=== PATIENT | female | born 1965 | race Caucasian/White ===

== ENCOUNTER 2016-07-06 17:28 | Emergency (ER) | payer BC, OTHER ==
[~2016-07-06] VITALS: Ht 152.4 cm; Wt 65.0 kg
[~2016-07-06 17:28] MED LIST: ALPR-138 PO; CITA-48 PO; IBUP800T23 PO; MONT10TA2 PO
[2016-07-06 17:34] VITALS: BP 135/66; PULSE 64; RESP 16; TEMP 97.6; O2SAT 96
--- NOTE | 2016-07-06 17:58 | PD ---
Physical Exam Time Seen by Provider: 17:56 Narrative PT WITH HISTORY OF MIGRAINE HEADACHES PRESENTS TO THE ED FOR EVALUATION OF HEADACHE ACUTE ONSET AFTER BM TWO TIMES TODAY AND ONCE TWO DAYS AGO. HEADACHE IS STILL THERE AND THROBBING. MILD NAUSEA NO VOMITING. SENSATION OF LIGHTHEADEDNESS. NO OTHER FOCAL DEFICITS . Data Data Last Documented VS Vital Signs Date Time Temp Pulse Resp B/P Pulse Ox O2 Delivery O2 Flow Rate FiO2 07/06/16 21:07 80 16 98 Room Air 07/06/16 17:34 97.6 135/66 Orders Complete Blood Count With Diff (07/06/16 17:58) Basic Metabolic Panel (Bmp) (07/06/16 17:58) Coag Profile (07/06/16 17:58) Ct Brain W/O Iv Contrast(Rout) (07/06/16 ) Iv Access Insert/Monitor (07/06/16 20:58) Prochlorperazine Inj (Compazine Inj) (07/06/16 21:00) Diphenhydramine Inj (Benadryl Inj) (07/06/16 21:00) Sodium Chloride 0.9% Flush (Ns Flush) (07/06/16 21:00) Labs Laboratory Tests Test 07/06/16 18:50 White Blood Count 10.5 TH/MM3 Red Blood Count 4.42 MIL/MM3 Hemoglobin 13.1 GM/DL Hematocrit 37.3 % Mean Corpuscular Volume 84.3 FL Mean Corpuscular Hemoglobin 29.7 PG Mean Corpuscular Hemoglobin 35.2 % Concent Red Cell Distribution Width 12.4 % Platelet Count 250 TH/MM3 Mean Platelet Volume 8.7 FL Neutrophils (%) (Auto) 50.5 % Lymphocytes (%) (Auto) 41.8 % Monocytes (%) (Auto) 5.5 % Eosinophils (%) (Auto) 1.7 % Basophils (%) (Auto) 0.5 % Neutrophils # (Auto) 5.3 TH/MM3 Lymphocytes # (Auto) 4.4 TH/MM3 Monocytes # (Auto) 0.6 TH/MM3 Eosinophils # (Auto) 0.2 TH/MM3 Basophils # (Auto) 0.1 TH/MM3 CBC Comment DIFF FINAL Differential Comment Prothrombin Time 10.8 SEC Prothromb Time International 1.0 RATIO Ratio Activated Partial 28.3 SEC Thromboplast Time Sodium Level 139 MEQ/L Potassium Level 3.9 MEQ/L Chloride Level 105 MEQ/L Carbon Dioxide Level 25.9 MEQ/L Anion Gap 8 MEQ/L Blood Urea Nitrogen 12 MG/DL Creatinine 0.62 MG/DL Estimat Glomerular Filtration 101 ML/MIN Rate Random Glucose 87 MG/DL Calcium Level 8.9 MG/DL [facility] Medical Record Reviewed: Yes Supervised Visit with ASRA: No Narrative Course PT APPEARS WITHOUT DISTRESS. AMBULATORY WITH NON ANTALGIC GAIT. WORK UP INITIATED IN TRIAGE. Scripts Djafniylhj-Txcgsybovopdu-Ddhqxdxa (Fioricet)50-300-40 Mg Cap1-2 Cap PO Q6H PRN ( HEADACHE) #12 CAP Ref 0 Prov:Bee Brannon MD 07/06/16 Condition: Stable Isaura Ceja Jul 06, 2016 17:58
--- NOTE | 2016-07-06 18:21 | RADRPT ---
EXAM DATE/TIME: 07/06/2016 18:09 [facility] COMPARISON: No previous studies available for comparison. INDICATIONS : Acute onset headache today. RADIATION DOSE: 34.04 CTDIvol (mGy) MEDICAL HISTORY : Migraines. SURGICAL HISTORY : None. ENCOUNTER: Initial ACUITY: 1 day PAIN SCALE: 5/10 LOCATION: cranial TECHNIQUE: Multiple contiguous axial images were obtained of the head. Using automated exposure control and adj ustment of the mA and/or kV according to patient size, radiation dose was kept as low as reasonably a chievable to obtain optimal diagnostic quality images. FINDINGS: CEREBRUM: The ventricles are normal for age. No evidence of midline shift, mass lesion, hemorrhage or acute in farction. No extra-axial fluid collections are seen. POSTERIOR FOSSA: The cerebellum and brainstem are intact. The 4th ventricle is midline. The cerebellopontine angle i s unremarkable. EXTRACRANIAL: The visualized portion of the orbits is intact. SKULL: The calvaria is intact. No evidence of skull fracture. CONCLUSION: Normal examination. Gerber Soliz MD on July 06, 2016 at 18:19 Board Certified Radiologist. This report was verified electronically.
[2016-07-06 19:34] LABS: AUTOMATED NEUTROPHIL # 5.3 TH/MM3 (1.8-7.7); BASOPHIL # 0.1 TH/MM3 (0-0.2); BASOPHIL % 0.5 % (0.0-2.0); EOSINOPHIL # 0.2 TH/MM3 (0-0.4); EOSINOPHIL % 1.7 % (0.0-4.0); HEMATOCRIT 37.3 % (35.0-46.0); HEMO FLAGS DIFF FINAL; LYMPH % 41.8 % (9.0-44.0); LYMPHOCYTE # 4.4 TH/MM3 (1.0-4.8); MEAN CELL VOLUME 84.3 FL (80.0-100.0); MEAN CORPUSCULAR HEMOGLOBIN 29.7 PG (27.0-34.0); MEAN CORPUSCULAR HGB CONC 35.2 % (32.0-36.0); MONO % 5.5 % (0.0-8.0); NEUT % 50.5 % (16.0-70.0); PLATELET COUNT 250 TH/MM3 (150-450); RED BLOOD COUNT 4.42 MIL/MM3 (4.00-5.30); RED CELL DISTRIBUTION WIDTH 12.4 % (11.6-17.2); WHITE BLOOD COUNT 10.5 TH/MM3 (4.0-11.0)
[2016-07-06 19:51] LABS: BICARBONATE 25.9 MEQ/L (21.0-32.0); POTASSIUM 3.9 MEQ/L (3.5-5.1)
[2016-07-06 19:58] LABS: APTT (PATIENT) 28.3 SEC (24.3-30.1); PROTHROMBIN TIME - PATIENT 10.8 SEC (9.8-11.6)
[2016-07-06] MEDS ORDERED: PROCHLORPERAZINE INJ 10 MG/2 ML VIAL IVP ONE (21:00)
[2016-07-06] MEDS ORDERED: SODIUM CHLORIDE 0.9% FLUSH 5 ML FLUSH IVF PRN (21:00)
[2016-07-06] MEDS ORDERED: diphenhydrAMINE HCL 50 MG/ML VIAL IVP ONE (21:00)
[2016-07-06] MEDS ORDERED: BUTA1CAP PO (21:10)
--- NOTE | 2016-07-06 21:11 | PD ---
HPI . Headache Chief Complaint: Headache Time Seen by Provider: 20:54 Travel History International Travel<30 days: No Contact w/Intl Traveler<30days: No Traveled to known affect area: No History of Present Illness HPI Patient presents with a headache. She states that it started a couple days ago when she was straining to have a bowel movement. It got better. Then she strained again today having a bowel movement. The headache today has persisted. She states that she has taken Tylenol Sinus without relief. She describes a throbbing, global headache associated with dizziness. No blurred vision. History Past Medical History : 3 Para: 2 Social History Alcohol Use: Yes (SOCIALLY, WINE AND BEER) Tobacco Use: No Allergies-Medications (Allergen,Severity, Reaction): Coded Allergies: Biaxin (Verified Allergy, Severe, HIVES, 02/09/16) Penicillin (Verified Allergy, Severe, TOLD CHILD, 02/09/16) Percocet (Verified Allergy, Severe, ITCHY, 02/09/16) Levaquin (Verified Allergy, Unknown, 07/06/16) Reglan (Verified Adverse Reaction, Severe, "PANIC ATTACKS", 02/09/16) Reported Meds & Prescriptions Reported Meds & Active Scripts Active Fioricet (Xkopnudftp-Gncqaaaqmwejr-Ofubmmii) 50-300-40 Mg Cap 1-2 Cap PO Q6H PRN Ibuprofen 800 Mg Tab 800 Mg PO TID PRN Reported Singulair (Montelukast Sodium) 10 Mg Tab 10 Mg PO HS Citalopram Hydrobromide 40 Mg Tab 40 Mg PO DAILY Xanax (Alprazolam) 0.25 Mg Tab 0.5 Mg PO TID Review of Systems Except as stated in HPI: all other systems reviewed are Neg General / Constitutional: No: Fever, Chills Eyes: No: Blurred Vision HENT: Positive: Headaches Gastrointestinal: Positive: Constipation Neurologic: Positive: Dizziness Physical Exam Narrative GENERAL: This patient is awake and alert and in no distress. SKIN: Warm and dry. HEAD: Atraumatic. Normocephalic. She has some mild scalp tenderness. EYES: Pupils equal and round. ENT: No nasal bleeding or discharge. Mucous membranes pink and moist. NECK: Trachea midline. Neck is supple with full range of motion. CARDIOVASCULAR: Regular rate and rhythm. RESPIRATORY: No accessory muscle use. MUSCULOSKELETAL: No obvious deformities. No edema. NEUROLOGICAL: Awake and alert. No obvious cranial nerve deficits. Motor grossly within normal limits. Normal speech. PSYCHIATRIC: Appropriate mood and affect; insight and judgment normal. Data Data Last Documented VS Vital Signs Date Time Temp Pulse Resp B/P Pulse Ox O2 Delivery O2 Flow Rate FiO2 07/06/16 21:07 80 16 98 Room Air 07/06/16 17:34 97.6 135/66 Orders Complete Blood Count With Diff (07/06/16 17:58) Basic Metabolic Panel (Bmp) (07/06/16 17:58) Coag Profile (07/06/16 17:58) Ct Brain W/O Iv Contrast(Rout) (07/06/16 ) Iv Access Insert/Monitor (07/06/16 20:58) Prochlorperazine Inj (Compazine Inj) (07/06/16 21:00) Diphenhydramine Inj (Benadryl Inj) (07/06/16 21:00) Sodium Chloride 0.9% Flush (Ns Flush) (07/06/16 21:00) Labs Laboratory Tests Test 07/06/16 18:50 White Blood Count 10.5 TH/MM3 Red Blood Count 4.42 MIL/MM3 Hemoglobin 13.1 GM/DL Hematocrit 37.3 % Mean Corpuscular Volume 84.3 FL Mean Corpuscular Hemoglobin 29.7 PG Mean Corpuscular Hemoglobin 35.2 % Concent Red Cell Distribution Width 12.4 % Platelet Count 250 TH/MM3 Mean Platelet Volume 8.7 FL Neutrophils (%) (Auto) 50.5 % Lymphocytes (%) (Auto) 41.8 % Monocytes (%) (Auto) 5.5 % Eosinophils (%) (Auto) 1.7 % Basophils (%) (Auto) 0.5 % Neutrophils # (Auto) 5.3 TH/MM3 Lymphocytes # (Auto) 4.4 TH/MM3 Monocytes # (Auto) 0.6 TH/MM3 Eosinophils # (Auto) 0.2 TH/MM3 Basophils # (Auto) 0.1 TH/MM3 CBC Comment DIFF FINAL Differential Comment Prothrombin Time 10.8 SEC Prothromb Time International 1.0 RATIO Ratio Activated Partial 28.3 SEC Thromboplast Time Sodium Level 139 MEQ/L Potassium Level 3.9 MEQ/L Chloride Level 105 MEQ/L Carbon Dioxide Level 25.9 MEQ/L Anion Gap 8 MEQ/L Blood Urea Nitrogen 12 MG/DL Creatinine 0.62 MG/DL Estimat Glomerular Filtration 101 ML/MIN Rate Random Glucose 87 MG/DL Calcium Level 8.9 MG/DL [facility] Medical Decision Making Medical Screen Exam Complete: Yes Emergency Medical Condition: Yes Differential Diagnosis Differential diagnosis of headache includes but is not limited to migraine, muscle contraction headache, brain tumor, brain bleed Narrative Course Patient was initially seen in triage by one of the PAs. She has had a negative CT of her head. Her CBC is normal. Her electrolytes are normal. I will treat her headache and then discharge her to home. The patient declines IV medications. She states she just was to go home and rest. I have written her prescription for Fioricet. Diagnosis Primary Impression: Headache Qualified Code: R51 - Acute nonintractable headache, unspecified headache type Med/Other Pt SpecificInfo: Prescription(s) given Scripts Lbdfscebpt-Qzrfyjetczqqi-Lwziratm (Fioricet)50-300-40 Mg Cap1-2 Cap PO Q6H PRN ( HEADACHE) #12 CAP Ref 0 Prov:Bee Brannon MD 07/06/16 Disposition: DISCHARGE HOME Condition: Stable Bee Brannon MD Jul 06, 2016 21:11
== END 2016-07-06 21:21 | disposition home or self-care (01) ==
LOC: NEPC 17:28
DX: R51 Headache (principal)
CPT/HCPCS: 70450; 80048; 85025; 85610; 85730

== ENCOUNTER 2016-11-10 16:49 | Emergency (ER) | payer BC ==
[~2016-11-10] VITALS: Ht 154.9 cm; Wt 67.0 kg
[~2016-11-10 16:49] MED LIST changes: -ALPR-138 PO; +BUTA1CAP PO; -CITA-48 PO; -IBUP800T23 PO; -MONT10TA2 PO
[2016-11-10 16:54] VITALS: BP 122/71; PULSE 72; RESP 16; TEMP 97.7; O2SAT 98
[2016-11-10] MEDS ORDERED: SODIUM CHLOR 0.9% 1000 ML INJ 1,000 ML IV SCH (17:22)
[2016-11-10 17:23] LABS: BLOOD, URINE NEG (NEG); GLUCOSE,URINE NEG (NEG); KETONE, URINE NEG (NEG); NITRITE,URINE NEG (NEG); PH, URINE 6.5 (5.0-8.5)
--- NOTE | 2016-11-10 17:26 | PD ---
HPI Chief Complaint: Complaint Time Seen by Provider: 17:22 Travel History International Travel<30 days: No Contact w/Intl Traveler<30days: No Traveled to known affect area: No History of Present Illness HPI 51-year-old female with history of kidney stones, presents to the ER today with several days' history of burning on urination and today woke up with a left sided abdomen and left flank pain that she currently measures at a 9 out of 10. She has been nauseous but denies any fevers, vomiting, diarrhea, or any other symptoms. She does not know exacerbating alleviating factors. Modifying Factors: None Associated Signs & Symptoms: Left flank pain, urinary symptoms Risk Factors: Kidney stone history PFSH Past Medical History Anxiety: Yes Depression: Yes Diminished Hearing: No GERD: Yes Kidney Stones: Yes Influenza Vaccination: No ?: Not Menopausal: Yes : 3 Para: 2 Miscarriage: 1 Tubal Ligation: Yes Past Surgical History Abdominal Surgery: Yes (EXP LAP) Cholecystectomy: Yes Gynecologic Surgery: Yes (CERVICAL CONIZATION; DX LAPROSCOPIES X 2) Social History Alcohol Use: Yes (rarely) Tobacco Use: No Substance Use: No Allergies-Medications (Allergen,Severity, Reaction): Coded Allergies: Biaxin (Verified Allergy, Severe, HIVES, 11/10/16) Penicillin (Verified Allergy, Severe, TOLD CHILD, 11/10/16) Percocet (Verified Allergy, Severe, ITCHY, 11/10/16) Levaquin (Verified Allergy, Unknown, 11/10/16) Reglan (Verified Adverse Reaction, Severe, "PANIC ATTACKS", 11/10/16) Reported Meds & Prescriptions Reported Meds & Active Scripts Active Fioricet (Ezzanjpeth-Fdqdwwlsowvsz-Qfshdegf) 50-300-40 Mg Cap 1-2 Cap PO Q6H PRN Review of Systems Except as stated in HPI: all other systems reviewed are Neg Physical Exam Narrative GENERAL: Well-developed middle age white female patient currently in mild distress. Awake and oriented 3. SKIN: Focused skin assessment warm/dry. HEAD: Atraumatic. Normocephalic. EYES: Pupils equal and round. No scleral icterus. No injection or drainage. ENT: No nasal bleeding or discharge. Mucous membranes pink and moist. NECK: Trachea midline. No JVD. CARDIOVASCULAR: Regular rate and rhythm. No murmur appreciated. RESPIRATORY: No accessory muscle use. Clear to auscultation. Breath sounds equal bilaterally. GASTROINTESTINAL: Abdomen soft, suprapubic tenderness without guarding or rebound, nondistended. Hepatic and splenic margins not palpable. MUSCULOSKELETAL: No obvious deformities. No clubbing. No cyanosis. No edema. BACK: Left CVA tenderness. No rash. No point tenderness on palpation of the spine. NEUROLOGICAL: Awake and alert. No obvious cranial nerve deficits. Motor grossly within normal limits. Normal speech. PSYCHIATRIC: Appropriate mood and affect; insight and judgment normal. Data Data Last Documented VS Vital Signs Date Time Temp Pulse Resp B/P Pulse Ox O2 Delivery O2 Flow Rate FiO2 11/10/16 16:54 97.7 72 16 122/71 98 Orders Urinalysis - C+S If Indicated (11/10/16 16:56) Complete Blood Count With Diff (11/10/16 17:22) Comprehensive Metabolic Panel (11/10/16 17:22) Lipase (11/10/16 17:22) Ct Abd/Pel W/O Iv Contrast (11/10/16 17:22) Iv Access Insert/Monitor (11/10/16 17:22) Ecg Monitoring (11/10/16 17:22) Oximetry (11/10/16 17:22) Ondansetron Inj (Zofran Inj) (11/10/16 17:30) Sodium Chlor 0.9% 1000 Ml Inj (Ns 1000 M (11/10/16 17:22) Sodium Chloride 0.9% Flush (Ns Flush) (11/10/16 17:30) Ketorolac Inj (Toradol Inj) (11/10/16 17:30) Labs Laboratory Tests Test 11/10/16 11/10/16 17:15 17:50 Urine Color YELLOW Urine Turbidity CLEAR Urine pH 6.5 Urine Specific [place] 1.005 Urine Protein NEG mg/dL Urine Glucose (UA) NEG mg/dL Urine Ketones NEG mg/dL Urine Occult Blood NEG Urine Nitrite NEG Urine Bilirubin NEG Urine Leukocyte Esterase NEG Urine Squamous Epithelial 0-5 /hpf Cells Microscopic Urinalysis Comment CULT NOT INDICATED White Blood Count 11.8 TH/MM3 Red Blood Count 4.63 MIL/MM3 Hemoglobin 13.4 GM/DL Hematocrit 39.1 % Mean Corpuscular Volume 84.4 FL Mean Corpuscular Hemoglobin 28.9 PG Mean Corpuscular Hemoglobin 34.2 % Concent Red Cell Distribution Width 11.4 % Platelet Count 252 TH/MM3 Mean Platelet Volume 8.9 FL Neutrophils (%) (Auto) 50.1 % Lymphocytes (%) (Auto) 40.0 % Monocytes (%) (Auto) 5.0 % Eosinophils (%) (Auto) 1.2 % Basophils (%) (Auto) 3.7 % Neutrophils # (Auto) 6.0 TH/MM3 Lymphocytes # (Auto) 4.7 TH/MM3 Monocytes # (Auto) 0.6 TH/MM3 Eosinophils # (Auto) 0.1 TH/MM3 Basophils # (Auto) 0.4 TH/MM3 CBC Comment DIFF FINAL Differential Comment Sodium Level 142 MEQ/L Potassium Level 4.1 MEQ/L Chloride Level 107 MEQ/L Carbon Dioxide Level 26.1 MEQ/L Anion Gap 9 MEQ/L Blood Urea Nitrogen 10 MG/DL Creatinine 0.62 MG/DL Estimat Glomerular Filtration 101 ML/MIN Rate Random Glucose 94 MG/DL Calcium Level 9.5 MG/DL Total Bilirubin 0.3 MG/DL Aspartate Amino Transf 15 U/L (AST/SGOT) Alanine Aminotransferase 15 U/L (ALT/SGPT) Alkaline Phosphatase 68 U/L Total Protein 7.8 GM/DL Albumin 4.1 GM/DL Lipase 182 U/L MDM Medical Decision Making Medical Screen Exam Complete: Yes Emergency Medical Condition: Yes Medical Record Reviewed: Yes Interpretation(s) Laboratory Tests Test 11/10/16 17:50 White Blood Count 11.8 TH/MM3 (4.0-11.0) Red Cell Distribution Width 11.4 % (11.6-17.2) Basophils (%) (Auto) 3.7 % (0.0-2.0) Basophils # (Auto) 0.4 TH/MM3 (0-0.2) Last 24 hours Impressions Abdomen/Pelvis CT 11/10/16 1722 Signed Impressions: Service Date/Time: October 18:22 - CONCLUSION: No acute abnormality. There are no renal or ureteral stones or evidence of obstructive uropathy. Lior Aguirre MD Differential Diagnosis Left flank pains, urinary symptomsUTI/pyelonephritis versus kidney stones versus muscular Narrative Course Pelvic exam is deferred because patient states she does not want one done at this time. She denies any unusual vaginal discharge. UA did not show any signs of UTI. CAT scan is negative for any signs of acute intra-abdominal processes. Lab work is fairly unremarkable. At this point, my plan would be to release the patient was symptomatic relief for discomfort and follow-up with primary care physician. Return for worsening in symptoms as needed. The plan has been discussed with her and she states understanding. Diagnosis Primary Impression: Left flank pain Med/Other Pt SpecificInfo: Prescription(s) given Scripts Ibuprofen (Motrin Ib)200 Mg Jarxmo114 Mg PO QID PRN (PAIN SCALE 1 TO 10) #20 Prov:Francesca Tejada MD 11/10/16 Disposition: DISCHARGE HOME Condition: Stable Francesca Tejada MD November 10, 2016 17:26
[2016-11-10 17:29] LABS: URINE COLOR YELLOW (YELLW/STRAW)
[2016-11-10 17:30] LABS: COMMENT (UR) CULT NOT INDICATED; CULTURE IF INDICATED CULT NOT INDICATED; SQUAMOUS EPITHELIAL CELL URINE 0-5 /hpf (0-5)
[2016-11-10] MEDS ORDERED: KETOROLAC TROMETHAMINE 30 MG/ML (IVP) VIAL IVP ONE (17:30)
[2016-11-10] MEDS ORDERED: SODIUM CHLORIDE 0.9% FLUSH 10 ML FLUSH IV FLUSH PRN (17:30)
[2016-11-10] MEDS ORDERED: ONDANSETRON HCL 4 MG/2 ML VIAL IVP ONE (17:30)
[2016-11-10 18:05] LABS: CHLORIDE 107 MEQ/L (98-107); POTASSIUM 4.1 MEQ/L (3.5-5.1); SODIUM (NA) 142 MEQ/L (136-145)
[2016-11-10 18:08] LABS: ANION GAP 9 MEQ/L (5-15); BICARBONATE 26.1 MEQ/L (21.0-32.0)
[2016-11-10 18:09] LABS: BLOOD UREA NITROGEN 10 MG/DL (7-18)
[2016-11-10 18:11] LABS: ALT (GPT) 15 U/L (10-53); AST (GOT) 15 U/L (15-37); GLOMERULAR FILTRATION RATE 101 ML/MIN (>89)
[2016-11-10 18:13] LABS: TOTAL BILIRUBIN ADULT 0.3 MG/DL (0.2-1.0)
[2016-11-10 18:14] LABS: ALKALINE PHOSPHATASE 68 U/L (45-117)
[2016-11-10 18:18] LABS: BASOPHIL # 0.4 TH/MM3 (0-0.2); BASOPHIL % 3.7 % (0.0-2.0); EOSINOPHIL # 0.1 TH/MM3 (0-0.4); EOSINOPHIL % 1.2 % (0.0-4.0); HEMATOCRIT 39.1 % (35.0-46.0); HEMO FLAGS DIFF FINAL; LYMPHOCYTE # 4.7 TH/MM3 (1.0-4.8); MEAN CELL VOLUME 84.4 FL (80.0-100.0); MEAN CORPUSCULAR HEMOGLOBIN 28.9 PG (27.0-34.0); MEAN CORPUSCULAR HGB CONC 34.2 % (32.0-36.0); NEUT % 50.1 % (16.0-70.0); PLATELET COUNT 252 TH/MM3 (150-450); RED BLOOD COUNT 4.63 MIL/MM3 (4.00-5.30); RED CELL DISTRIBUTION WIDTH 11.4 % (11.6-17.2); WHITE BLOOD COUNT 11.8 TH/MM3 (4.0-11.0)
--- NOTE | 2016-11-10 18:45 | RADHPO ---
EXAM DATE/TIME: 11/10/2016 18:22 [facility] COMPARISON: 05/01/2012 INDICATIONS : Left flank pain, nausea. ORAL CONTRAST: No oral contrast ingested. RADIATION DOSE: 11.45 CTDIvol (mGy) MEDICAL HISTORY : Renal calculi. Gastroesophageal reflux disease. SURGICAL HISTORY : Cholecystectomy. Tubal ligation. ENCOUNTER: Initial ACUITY: 1 day PAIN SCALE: 7/10 LOCATION: Left flank TECHNIQUE: Volumetric scanning of the abdomen and pelvis was performed. Using automated exposure control and ad justment of the mA and/or kV according to patient size, radiation dose was kept as low as reasonably achievable to obtain optimal diagnostic quality images. FINDINGS: LOWER LUNGS: The visualized lower lungs are clear. LIVER: Scattered hypodensities unchanged. SPLEEN: Normal size without lesion. PANCREAS: Within normal limits. KIDNEYS: Normal in size and shape. There is no mass, stone, or hydronephrosis. ADRENAL GLANDS: Within normal limits. VASCULAR: There is no aortic aneurysm. BOWEL/MESENTERY: The stomach, small bowel, and colon demonstrate no acute abnormality. There is no free intraperitone al air or fluid. ABDOMINAL WALL: Within normal limits. RETROPERITONEUM: There is no lymphadenopathy. BLADDER: No wall thickening or mass. REPRODUCTIVE: Within normal limits. INGUINAL: There is no lymphadenopathy or hernia. MUSCULOSKELETAL: Within normal limits for patient age. CONCLUSION: No acute abnormality. There are no renal or ureteral stones or evidence of obstructive uropathy. Lior Aguirre MD on November 10, 2016 at 18:42 Board Certified Radiologist. This report was verified electronically.
[2016-11-10] MEDS ORDERED: IBUP-1129 PO (18:54)
== END 2016-11-10 19:23 | disposition home or self-care (01) ==
LOC: PHED 16:49
DX: R10.9 Unspecified abdominal pain (principal); F41.9 Anxiety disorder, unspecified; F32.9 Major depressive disorder, single episode, unspecified; K21.9 Gastro-esophageal reflux disease without esophagitis; Z88.0 Allergy status to penicillin; Z88.5 Allergy status to narcotic agent; Z88.8 Allergy status to other drugs, medicaments and biological substances
CPT/HCPCS: 74176; 80053; 81001; 83690; 85025; 96361; 96374; 96375; 99285; J1885; J2405; J7030

== ENCOUNTER 2016-12-14 17:54 | Emergency (ER) | payer OTHER, BC ==
[~2016-12-14] VITALS: Ht 154.9 cm; Wt 65.0 kg
[~2016-12-14 17:54] MED LIST changes: +IBUP-1129 PO
[2016-12-14 18:00] VITALS: BP 138/65; PULSE 83; RESP 16; O2SAT 97
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
[2016-12-14] MEDS ORDERED: CITA40TA4 PO (18:22)
[2016-12-14] MEDS ORDERED: ALPR.5 PO (18:22)
[2016-12-14] MEDS ORDERED: NEXI40CA PO (18:22)
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
[2016-12-14 20:13] VITALS: BP 116/71; PULSE 68; RESP 16; O2SAT 99
== END 2016-12-14 20:16 | disposition home or self-care (01) ==
LOC: NEPD 17:54
DX: S16.1XXA Strain of muscle, fascia and tendon at neck level, initial encounter (principal); T14.8 Other injury of unspecified body region; F41.9 Anxiety disorder, unspecified; F32.9 Major depressive disorder, single episode, unspecified; K21.9 Gastro-esophageal reflux disease without esophagitis; Z79.899 Other long term (current) drug therapy; V43.52XA Car driver injured in collision with other type car in traffic accident, initial encounter
CPT/HCPCS: 70450; 71010; 72125; 99285; L0150